=== PATIENT | male | born 1950 | race Caucasian/White ===

== ENCOUNTER 2016-08-17 07:49 | Emergency (ER) | payer MEDICARE, OTHER ==
[2016-08-17 07:57] VITALS: BP 126/75
--- NOTE | 2016-08-17 08:22 | ERNOTE ---
ENT HPI Date of Service: 08/17/16 Presenting Symptoms: other - facial swelling Time Seen by Provider: 08/17/16 08:21 - Immun/Allergies/Home Medications Immunizations: IMMUNIZATION HX Immunizations Up to Date Yes History of Influenza Vaccine No Hx Pneumococcal Vaccination No Allergies/Adverse Reactions: Allergies Allergy/AdvReac Type Severity Reaction Status Date / Time No Known Allergies Allergy Verified 08/17/16 08:00 Home Medications: HOME MEDICATIONS Aspirin [Aspirin Enteric Coated] 81 mg PO DAILY 03/14/16 [Last Taken Unknown] Atorvastatin Calcium 40 mg PO DAILY 03/14/16 [Last Taken Unknown] Levothyroxine Sodium [Synthroid] 25 mcg PO DAILY 03/14/16 [Last Taken Unknown] Metoprolol Succinate 50 mg PO DAILY 03/14/16 [Last Taken Unknown] Amox Tr/Potassium Clavulanate [Augmentin 875-125 Tablet] 1 tab PO Q12H #20 tab 08/17/16 [Last Taken Unknown] Penicillin V Potassium [Pen-Vee K] 500 mg PO TID 08/17/16 [Last Taken Unknown] - History of Present Illness Narrative: Presents with c/o left sided preauricular swelling for 2 days. Claims he has had similar episodes, twice in the past, with a diagnosis of parotitis. Claims he was given antibiotic by his PCP on previous episodes. Has been taking left over PCN. Denies any fever or chills. Severity: Present: moderate ENT Location: Present: facial Prearrival Treatment: Present: prescription meds - left over PCN tabs Modifying Factors - Improves: Reports: nothing Modifying Factors - Worsens: Reports: nothing Associated Symptoms - ENT: Reports: facial pain/swelling. Denies: fever, drooling, nasal congestion/drainage, tooth pain, jaw swelling, change in hearing , ear drainage, headache Review of Systems - Review of Systems Constitutional: Present: no symptoms reported EYE: Present: no symptoms reported ENT: Present: See HPI Respiratory: Present: no symptoms reported Cardiology: Present: no symptoms reported Gastrointestinal/Abdominal: Present: no symptoms reported Genitourinary: Present: no symptoms reported Musculoskeletal: Present: no symptoms reported Skin: Present: no symptoms reported Neurological: Present: no symptoms reported Endocrine: Present: no symptoms reported - Patient's Past Medical History Patient History - Medical: Hypothyroidism Patient History - Cardiac/Respiratory: Hypertension, Hyperlipidemia Patient History - Cancer: No Hx of Cancer Patient History - Surgical Procedures: Cardiac stent Patient History - Other: None - Social History Living Situations: home Abuse History: No History of abuse Psych History: No pertinent hx Alcohol Use: rarely Drug Use: none - Immunizations Immunizations Up to Date: Yes Hx Pneumococcal Vaccination: No History of Influenza Vaccine: No Physical Exam - Physical Exam General Appearance: Present: wd/wn, alert, no apparent distress Eye Exam: Normal inspection: bilateral, PERRL: bilateral, EOMI: bilateral Ears, Nose, Throat: Present: normal ENT inspection, other - Left parotid gland moderate, nontender, swelling. No warmth. No overlying erythema. Neck: Present: normal inspection, nontender, supple. Absent: lymphadenopathy (R ), lymphadenopathy (L) Respiratory: Present: no respiratory distress, normal breath sounds, chest nontender, lungs clear Cardiovascular/Chest: Present: regular rate, rhythm, no murmur Neurological Exam: Present: alert, oriented, normal mood/affect Skin Exam: Present: normal color, warm/dry ED Progress - Vital Signs Patient's Vital Signs:: I have reviewed the patient's vital signs. Vital Signs: Vital Signs 08/17/16 07:53 Temperature 36.9 C Pulse Rate 86 Respiratory 12 Rate Blood Pressure 126/75 O2 Sat by Pulse 96 Oximetry - Progress/Reassessment Chief Complaint: Facial Injury Departure Clinical Impression: Acute parotitis - Departure Disposition: Home self-care Condition: Good Instructions: Parotitis, [id number] Additional Instructions: Take medication as prescribed. Apply warm compress or heat to swelling 2 to 4 times daily. Recommend sucking on lollipops, popsicles, and even chewing gum to create more saliva. Follow up with your PCP in 1 week if condition does not show improvement. Referrals: Hever Galeana MD [Primary Care Provider] - Prescriptions: Amox Tr/Potassium Clavulanate [Augmentin 875-125 Tablet] 1 tab PO Q12H #20 tab
--- OUTSIDE RECORDS SUMMARY | 2016-08-17 08:33 | XMS REPORT | Continuity of Care Document ---
:1950 Author Organization [facility] ([facility]) [place] [address] Phone [phone] Care Team Providers Name Role Phone Hever Mcallister Primary Care Provider [phone] Source Comments This disclosure is being made pursuant to the Care Everywhere program, applicable federal and state laws, and may not contain all informaitonavailable regarding this patient.[facility] ([facility]) Active Allergies and Adverse Reactions No Known Allergies Current Medications Prescription Sig. Disp. Refills Start Date End Date Status LEVOTHYROXINE 25 mcg Take 25 mcg by 04/09/2015 Active tablet mouth daily. METOPROLOL succinate 50 Take 50 mg by 04/09/2015 Active mg XL tablet mouth daily. aspirin 81 mg EC tablet Take 81 mg by Active mouth. atorvastatin 40 mg Take 1 tablet 90 tablet 4 05/10/2016 Active tablet (40 mg total) by mouth daily. multivitamin tablet Take 1 tablet by Active mouth daily. Active Problems Problem Noted Date Precordial pain 07/07/2016 Coronary artery disease Overview: Formatting of this note may be different from the original. CARDIOVASCULAR PROCEDURES STRESS TESTS: Marco A MPI (Normal EF, Normal perfusion at rest and stress. Normal study.) - Hyperlipidemia Myocardial infarction, old Most Recent Encounters Date Type Specialty Providers Description 07/12/2016 Office Visit [facility] Samantha Nelson MD Chief Comp: Patient Reported Reason For Visit 07/12/2016 Office Visit [facility] Samantha Nelson MD Chief Comp: Patient Reported Reason For Visit 07/12/2016 Office Visit [facility] Samantha Nelson MD Chief Comp: Patient Reported Reason For Visit 07/07/2016 Office Visit [facility] Samantha Nelson MD Dx: Precordial pain (Primary Dx) Social History Tobacco Use Types Packs/Day Years Used Date Former Smoker Alcohol Use Drinks/Week oz/Week Comments No Last Filed Vital Signs Vital Sign Reading Time Taken Blood Pressure 108/80 07/07/2016 11:12 AM 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 [employer] Pulse 68 07/07/2016 11:12 AM [employer] Temperature - - Respiratory Rate - - Height 1.778 m (5' 10") 07/07/2016 11:12 AM [employer] Weight 97.977 kg (216 lb) 07/07/2016 11:12 AM [employer] Body Mass Index 30.99 07/07/2016 11:12 AM [employer] Oxygen Saturation - - Plan of Care Date Type Specialty Providers Description 05/02/2017 Appointment [facility] Samantha Nelson MD Chief Comp: Patient [address] [place] [address] Visit [phone] (Fax) Health Maintenance Due Date Last Done Comments HCV Screening 1950 Hepatitis B Vaccine (1 of 3 - Primary Series) 1950 Tdap Vaccine 10/28/1959 Lipid Disorder Screening 1966 Td Vaccine 1966 Colonoscopy 1998 Prostate Cancer Screening 1998 Zoster Vaccine 2008 Pneumococcal Vaccine (1 of 2 - PCV13) 2013 Influenza Vaccine: Seasonal (#1) 01/04/2016 Results from Last 3 Months Not on file
--- OUTSIDE RECORDS SUMMARY | 2016-08-17 08:33 | XMS REPORT | Summary of Care ---
:1950 Author Organization [facility] Care Team Providers Name Role Phone Hever Mcallister Primary Care Physician Encounter 07/02/16 - 07/02/[address] Carolee Manley , Dir. Lab: [phone] [place] [address]- Discharge Disposition: Home Attending Physician: Dayne Smith DO Admitting Physician: Hever Mcallister MD Referring Physician: Self, Referral Vital Signs Most recent to oldest 1 2 3 [Reference Range]: Orientation Oriented to Person, Place, Time (07/02/16 4:58 PM) Level of Consciousness Alert (07/02/16 4:58 PM) Respiratory Rate [12-30 21 brpm 17 brpm brpm] (07/02/16 8:05 PM) (07/02/16 5:07 PM) Blood Pressure [(reference 151/84mm hg 162/88mm hg 185/97mm hg range unavailable)/61-99 mm (07/02/16 8:05 PM) *>HHI* *>HHI* hg] (07/02/16 5:07 PM) (07/02/16 4:58 PM) Temperature F [97.7-99.9 97.6 degF 97.6 degF degF] *LOW* *LOW* (07/02/16 4:58 PM) (07/02/16 4:48 PM) Height 177.8 cm 177.8 cm (07/02/16 4:58 PM) (07/02/16 4:48 PM) Weight 94.5 kg 94.545 kg (07/02/16 4:58 PM) (07/02/16 4:48 PM) Problem List Condition Effective Dates Status Health Status Informant Myocardial infarction(Confirmed) Active Allergies, Adverse Reactions, Alerts No Known Allergies Medications atorvastatin 40 mg, PO, HS (At Bedtime) Start Date: 07/02/16 Status: Orderedlevothyroxine 25 mcg, PO, Daily (Once Daily) Start Date: 07/02/16 Status: Orderedmetoprolol succinate XL 50 mg, PO, Daily (Once Daily) Start Date: 07/02/16 Status: Ordered Results BASIC CHEMISTRIES Most recent to oldest [Reference Range]: 1 2 Sodium [134-144 mmol/L] 138 mmol/L (07/02/16 5:10 PM) Potassium [3.5-5.2 mmol/L] 4.3 mmol/L (07/02/16 5:10 PM) Chloride [97-108 mmol/L] 98 mmol/L (07/02/16 5:10 PM) CO2 [18-29 mmol/L] 25 mmol/L (07/02/16 5:10 PM) AGAP [5-19 mmol/L] 15 mmol/L (07/02/16 5:10 PM) Gluc [65-99 mg/dL] 112 mg/dL *HI* (07/02/16 5:10 PM) BUN [8-27 mg/dL] 12 mg/dL (07/02/16 5:10 PM) Creatinine [0.76-1.27 mg/dL] 0.67 mg/dL *LOW* (07/02/16 5:10 PM) eGFR 126 mL/min/1.73 m2 *NA* (07/02/16 5:10 PM) eGFR Amer 152 mL/min/1.73 m2 *NA* (07/02/16 5:10 PM) Bun/Crea [6-20 Ratio] 18 Ratio (07/02/16 5:10 PM) Calc Osmo [273-304] 276 (07/02/16 5:10 PM) Calcium [8.6-10.2 mg/dL] 9.3 mg/dL (07/02/16 5:10 PM) GENERAL CHEMISTRIES Most recent to oldest [Reference Range]: 1 2 ALT [0-44 International Units/L] 27 International Units/L (07/02/16 5:10 PM) AST [0-40 International Units/L] 22 International Units/L (07/02/16 5:10 PM) ALP [39-117 Units/L] 53 Units/L (07/02/16 5:10 PM) Bili Total [0.0-1.2 mg/dL] 0.4 mg/dL (07/02/16 5:10 PM) Total Protein [6.0-8.5 gm/dL] 7.2 gm/dL (07/02/16 5:10 PM) Albumin [3.6-4.8 gm/dL] 4.4 gm/dL (07/02/16 5:10 PM) Globulin [2.1-4.0 gm/dL] 2.8 gm/dL (07/02/16 5:10 PM) Alb/Glob 1.6 *NA* (07/02/16 5:10 PM) CARDIAC MARKERS Most recent to oldest [Reference Range]: 1 2 CK [24-204 Units/L] 114 Units/L (07/02/16 5:10 PM) Troponin T w/Courtesy Call [0.00-0.01 ng/mL] <0.01 ng/mL <0.01 ng/mL (07/02/16 7:10 PM) (07/02/16 5:10 PM) HEMOGRAM Most recent to oldest [Reference Range]: 1 2 WBC [4.80-10.80 thous/uL] 7.54 thous/uL (07/02/16 5:10 PM) RBC [4.70-6.10 mill/uL] 4.96 mill/uL (07/02/16 5:10 PM) Hgb [14.0-18.0 gm/dL] 16.0 gm/dL (07/02/16 5:10 PM) Hct [42.0-52.0 %] 46.0 % (07/02/16 5:10 PM) MCV [83.0-97.0 fl] 92.7 fl (07/02/16 5:10 PM) MCH [27.0-31.0 pg] 32.3 pg *HI* (07/02/16 5:10 PM) MCHC [32.3-36.5 gm/dL] 34.8 gm/dL (07/02/16 5:10 PM) Platelet [130-450 thous/uL] 136 thous/uL (07/02/16 5:10 PM) MPV [9.4-12.4 fl] 10.3 fl (07/02/16 5:10 PM) RDW-CV [11.5-15.5 %] 12.9 % (07/02/16 5:10 PM) AUTOMATED DIFF Most recent to oldest [Reference Range]: 1 2 Neut % 60.9 % *NA* (07/02/16 5:10 PM) Lymph % 28.6 % *NA* (07/02/16 5:10 PM) Mcduffie % 8.1 % *NA* (07/02/16 5:10 PM) Eos % 1.6 % *NA* (07/02/16 5:10 PM) Baso % 0.7 % *NA* (07/02/16 5:10 PM) Neut # [1.50-7.50 thous/uL] 4.59 thous/uL (07/02/16 5:10 PM) Lymph # [1.10-3.00 thous/uL] 2.16 thous/uL (07/02/16 5:10 PM) Mcduffie # [0.10-0.75 thous/uL] 0.61 thous/uL (07/02/16 5:10 PM) Eos # [0.00-0.50 thous/uL] 0.12 thous/uL (07/02/16 5:10 PM) Baso # [0.00-0.10 thous/uL] 0.05 thous/uL (07/02/16 5:10 PM) MANUAL DIFF Most recent to oldest [Reference Range]: 1 2 IG Pc 0.1 % *NA* (07/02/16 5:10 PM) IG Abs [0.00-0.10 thous/uL] 0.01 thous/uL (07/02/16 5:10 PM) Immunizations No data available for this section Procedures Procedure Date Related Diagnosis Body Site Stent, device Social History Social History Type Response Alcohol Current, 1-2 times per week Substance Abuse Never Smoking Status Never smoker Assessment and Plan Extracted from: Title:Chest Pain *ED Author:Dayne Smith DO Date:07/02/16 Impression and Plan Diagnosis Left sided chest pain ([facility] [id number], Working, Medical) Plan Condition: Stable. Disposition: Discharged: Time 07/02/2016 20:05:00, to home. Patient was given the following educational materials: Chest Pain (Nonspecific ) (Custom). Follow up with: Return to Emergency Department (if symptoms worsen), Primary Care Physician, In: 2 day(s). Counseled: Patient, Family, Regarding diagnosis, Regarding diagnostic results, Regarding treatment plan, Patient indicated understanding of instructions. Notes: By signing my name below, I Elayne Santos, attest that this documentation has been prepared under the direction and in the presence of Brayan Smith DO. I, Dr. Smith, personally performed the services described in this documentation. All medical record entries made by the scribe were at my direction and in my presence. I have reviewed the chart and agree that the record reflects my personal performance and is accurate and complete..
--- OUTSIDE RECORDS SUMMARY | 2016-08-17 08:33 | XMS REPORT | Continuity of Care Document ---
:1950 Author Organization [facility] [place] [address] Care Team Providers Name Role Phone Provider, None Per Patient Primary Care Provider Unavailable Source Comments This disclosure is being made pursuant to the [employer] program and maynot contain all information available regarding this patient.[employer] [facility] [facility] Active Allergies and Adverse Reactions No Known Allergies Current Medications Be aware that medications may not be up to date as of this document. Alwaysverify current medications with the patient. Prescription Sig. Disp. Refills Start Date End Date Status levothyroxine Take 100 mcg by Active (SYNTHROID, LEVOTHROID) mouth daily. 100 MCG tablet metoprolol succinate Take 50 mg by Active (TOPROL-XL) 50 MG 24 hr mouth daily. tablet simvastatin (ZOCOR) 10 Take 10 mg by Active MG tablet mouth nightly. aspirin 81 MG EC tablet Take 81 mg by Active mouth daily. fluocinonide (LIDEX) Apply twice 30 g 0 03/09/2016 Active 0.05 % cream daily to area of rash for 2-3 weeks or until resolved. Do not apply to face. hydrOXYzine (ATARAX) 25 Take 1 tablet by 30 tablet 0 03/09/2016 Active MG tablet mouth 3 (three) times daily as needed for Itching. Active Problems No known active problems Social History Tobacco Use Types Packs/Day Years Used Date Former Smoker Last Filed Vital Signs Vital Sign Reading Time Taken Blood Pressure 118/72 03/09/2016 8:02 PM CDT Pulse 80 03/09/2016 8:02 PM CDT Temperature 36.4 C (97.5 F) 03/09/2016 8:02 PM CDT Respiratory Rate 12 03/09/2016 8:02 PM CDT Height 1.778 m (5' 10") 03/09/2016 8:02 PM CDT Weight 96.072 kg (211 lb 12.8 oz) 03/09/2016 8:02 PM CDT Body Mass Index 30.39 03/09/2016 8:02 PM CDT Oxygen Saturation - - Plan of Care Health Maintenance Due Date Last Done Comments Hepatitis C Screening 1968 Tetanus/Pertussis (1 - Tdap) 10/28/1967 Colonoscopy 1998 Well Adult Visit 1998 Zoster Vaccine 60+ 2008 AAA Screening (Medicare Covered) 2013 Pneumococcal Low/Medium Risk 65+ (1 of 2 - PCV13) 2013 Influenza Immunization (#1) 2016 Results from Last 3 Months Not on file
== END 2016-08-17 08:50 | disposition home or self-care (01) ==
LOC: ER 07:49
DX: K11.21 Acute sialoadenitis (principal); E03.9 Hypothyroidism, unspecified; I10 Essential (primary) hypertension; E78.5 Hyperlipidemia, unspecified; Z95.5 Presence of coronary angioplasty implant and graft

== ENCOUNTER 2016-11-18 10:35 | Day surgery (SDC) | payer MEDICARE, OTHER ==
[~2016-11-18 10:35] MED LIST: RINGERS SOLUTION,LACTATED 1,000 ML IV PRN; ceFAZolin SODIUM 2 GM in DEXTROSE 5 % IN WATER 50 ML IV PRN
--- OUTSIDE RECORDS SUMMARY | 2016-11-18 10:39 | XMS REPORT | Continuity of Care Document ---
:1950 Author Organization [facility] ([facility]) [place] [address] Phone [phone] Care Team Providers Name Role Phone Hever Mcallister Primary Care Provider [phone] Source Comments This disclosure is being made pursuant to the Care Everywhere program, applicable federal and state laws, and may not contain all informaitonavailable regarding this patient.[facility] ([facility]) Active Allergies and Adverse Reactions No Known Allergies Current Medications Prescription Sig. Disp. Refills Start Date End Date Status LEVOTHYROXINE 25 mcg Take 25 mcg by 11 04/09/2015 Active tablet mouth daily. METOPROLOL succinate 50 Take 50 mg by 11 04/09/2015 Active mg XL tablet mouth daily. 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
--- OUTSIDE RECORDS SUMMARY | 2016-11-18 10:39 | XMS REPORT | Continuity of Care Document ---
:1950 Author Organization [employer] [facility] [employer] [place] [address] Care Team Providers Name Role Phone Provider, None Per Patient Primary Care Provider Unavailable Source Comments This disclosure is being made pursuant to the [employer] program and maynot contain all information available regarding this patient.[employer] Active Allergies and Adverse Reactions No Known [...]
[2016-11-18] MEDS ORDERED: RINGERS SOLUTION,LACTATED 1,000 ML IV ONE (11:09)
[2016-11-18] MEDS ORDERED: BUPIVACAINE HCL/EPINEPHRINE 50 ML VIAL IJ ONE ×2 (12:33)
[2016-11-18] MEDS ORDERED: LIDOCAINE HCL 50 ML VIAL IJ ONE ×2 (12:34)
--- NOTE | 2016-11-18 13:38 | OR ---
Operative Report - Dictated Report Narrative: Date: 11/18/2016 Preoperative diagnosis: Left inguinal hernia Postoperative diagnosis: Same, direct Procedure: Left inguinal hernia repair with large Prolene hernia system Staff surgeon: Ahsan Hess MD Anesthesia: Local/MAC EBL: Minimal Specimen: Transversalis fascia-discarded. Description of procedure: The patient was placed in the supine position and the left groin and genitalia were prepped and draped in the sterile fashion. A field block was performed. Incision was carried out at the pubic tubercle and extended laterally for 6 cm. Dissection was taken down through the subcutaneous tissue to the external oblique up on urinalysis. Additional anesthesia was injected into the inguinal canal. The external oblique was divided in the direction of its fibers through the external ring. The spermatic cord was dissected free from surrounding structures and isolated the pubic tubercle with a Boulder drain. There was no evidence of an indirect hernia. He had a large direct hernia this was dissected free from the surrounding adventitia. The transversalis was then excised off of the hernia as well. A properitoneal pocket was then formed with sponge packing and finger dissection. A large Prolene hernia system was selected for the prosthesis. The internal disc was deployed into the properitoneal pocket. The medial external leaflet was fashioned to overlap the pubic tubercle by 2 cm and was placed in an onlay fashion. The lateral leaflet was keyholed for egress of the spermatic cord. The 2 tails were sutured to one another with a 3-0 Prolene. The external oblique was reconstituted with a running whipstitch of 3-0 Vicryl. The incision was closed with a subcuticular stitch of 4-0 Vicryl and then sealed with Dermabond. The patient tolerated the procedure well without any apparent complications and was discharged from the operating room in stable condition.
[2016-11-18] MEDS ORDERED: HYDROcodone/ACETAMINOPHEN 1 EACH TABLET PO PRN (14:22)
[2016-11-18 15:07] VITALS: BP 126/72
== END 2016-11-18 10:36 | disposition home or self-care (01) ==
LOC: AMB 10:35
PROVIDERS: ATTEND Specialist
PROC: 0YU60JZ Supplement Left Inguinal Region with Synthetic Substitute, Open Approach (ICD-10-PCS; principal; 2016-11-18 11:30)
DX: K40.90 Unilateral inguinal hernia, without obstruction or gangrene, not specified as recurrent (principal); I10 Essential (primary) hypertension; E78.5 Hyperlipidemia, unspecified; E03.9 Hypothyroidism, unspecified; J45.20 Mild intermittent asthma, uncomplicated; Z87.891 Personal history of nicotine dependence; Z68.30 Body mass index [BMI] 30.0-30.9, adult

== ENCOUNTER 2016-11-27 08:22 | Emergency (ER) | payer MEDICARE, OTHER ==
[2016-11-27 08:32] VITALS: BP 148/83
--- OUTSIDE RECORDS SUMMARY | 2016-11-27 08:41 | XMS REPORT | Continuity of Care Document ---
:1950 Author Organization [employer] [place] [address] Care Team Providers Name Role Phone Provider, None Per Patient Primary Care Provider Unavailable Source Comments This disclosure is being made pursuant to the [employer] program and maynot contain all information available regarding this patient.[facility] Active Allergies and Adverse Reactions No Known [...]
--- NOTE | 2016-11-27 08:57 | ERNOTE ---
Abdominal HPI - General Chief Complaint: Abdominal Pain Time Seen by Provider: 11/27/16 08:33 Source: patient Exam Limitations: no limitations - Immun/Allergies/Home Medications Immunizatons: IMMUNIZATION HX Immunizations Up to Date Yes History of Influenza Vaccine Yes Hx Pneumococcal Vaccination No Allergies/Adverse Reactions: Allergies No Known Allergies Allergy (Verified 11/27/16 08:31) Home Medications: HOME MEDICATIONS Aspirin [Aspirin Enteric Coated] 81 mg PO DAILY 03/14/16 [Last Taken Unknown] Atorvastatin Calcium 40 mg PO DAILY 03/14/16 [Last Taken Unknown] Levothyroxine Sodium [Synthroid] 25 mcg PO DAILY 03/14/16 [Last Taken Unknown] Metoprolol Succinate [Toprol Xl] 50 mg PO DAILY 11/16/16 [Last Taken Unknown] Multivitamins [Multivitamin Richy] 1 cap PO DAILY 11/16/16 [Last Taken Unknown] [place]-3 Fatty Acids/Fish Oil [Fish Oil 1,000 mg Capsule] 1 each PO DAILY [Last Taken Unknown] - History of Present Illness Narrative: Patient had left inguinal hernia repair nine days ago. He has been doing well post op, not needing any pain medications. Yesterday he went to a [employer] and spend nine hours total in a car. In the evening the area seemed sore. This morning he started to do his abdominal exercises and had discomfort again, no pain when laying down, slightly tender to touch and discomfort when sitting prolonged. He also noted a little swelling when palpating the scar. Modifying Factors - (Improves): Present: lying down Modifying Factors - (Worsens): Present: sitting up Associated Symptoms: Present: denies symptoms Prior Treatment: Present: recently seen. Absent: currently on antibiotics Review of Systems - Review of Systems Constitutional: Present: recent illness. Absent: fever ENT: Absent: nose congestion, sore throat Respiratory: Absent: shortness of breath Cardiology: Absent: chest pain Gastrointestinal/Abdominal: Present: See HPI, constipation. Absent: nausea, vomiting, diarrhea Genitourinary: Present: no symptoms reported Skin: Present: no symptoms reported Neurological: Absent: headache - Patient's Past Medical History Patient History - Medical: Hypothyroidism, Other Patient History - Cardiac/Respiratory: Hypertension, Hyperlipidemia, Myocardial Infarction Patient History - Cancer: No Hx of Cancer Patient History - Surgical Procedures: Colonoscopy, T & A, Hernia Repair Patient History - Other: None - Family History Father Family History - Medical: , No pertinent hx Family History - Cardiac/Respiratory: Coronary Heart Disease Family History - Cancer: No pertinent family hx Mother Family History - Medical: , No pertinent hx Family History - Cardiac/Respiratory: Myocardial Infarction Family History - Cancer: Cervical - Social History Living Situations: alone Abuse History: No History of abuse Psych History: No pertinent hx Smoking Status: Never smoker Have you smoked in the past 12 months: No Do you dip or chew tobacco: No Alcohol Use: none Drug Use: none - Immunizations Immunizations Up to Date: Yes Hx Pneumococcal Vaccination: No History of Influenza Vaccine: Yes Physical Exam - Physical Exam General Appearance: Present: wd/wn, alert, no apparent distress Respiratory: Present: no respiratory distress, normal breath sounds, lungs clear Cardiovascular/Chest: Present: regular rate, rhythm, no murmur Gastrointestinal/Abdominal: Present: normal bowel sounds, nondistended, soft, other - left lower quadrant well healing scar, no erythema, no drainage, no swelling, small palpable hematoma, skin echymosis suprapubic but no induration, minimally tender Male Genitals Exam: Present: normal genitalia - except skin echymosis Neurological Exam: Present: alert, oriented, normal mood/affect Skin Exam: Present: normal color, warm/dry ED Progress - Vital Signs Patient's Vital Signs:: I have reviewed the patient's vital signs. Vital Signs: Vital Signs 11/27/16 08:26 Temperature 35.9 C L Pulse Rate 72 Respiratory 14 Rate Blood Pressure 148/83 O2 Sat by Pulse 99 Oximetry - Progress/Reassessment Chief Complaint: Abdominal Pain Departure - Departure Clinical Impression: Encounter for postoperative wound check Disposition: Home self-care Condition: Good Instructions: Inguinal Hernia, Adult, [id number] Additional Instructions: the wound looks good, follow up with your surgeon as scheduled Referrals: Hever Galeana MD [Primary Care Provider] -
== END 2016-11-27 08:52 | disposition home or self-care (01) ==
LOC: ER 08:22
DX: Z98.890 Other specified postprocedural states (principal); E03.9 Hypothyroidism, unspecified; E78.5 Hyperlipidemia, unspecified; I10 Essential (primary) hypertension; I25.2 Old myocardial infarction

== ENCOUNTER 2016-12-09 09:25 | Day surgery (SDC) | payer MEDICARE, OTHER ==
[~2016-12-09 09:25] MED LIST changes: -ceFAZolin SODIUM 2 GM in DEXTROSE 5 % IN WATER 50 ML IV PRN
--- OUTSIDE RECORDS SUMMARY | 2016-12-09 09:28 | XMS REPORT | Continuity of Care Document ---
:1950 Author Organization [place] [address] Care Team Providers Name Role Phone Provider, None Per Patient Primary Care Provider Unavailable Source Comments This disclosure is being made pursuant to the [employer] program and maynot contain all information available regarding this patient.[facility] Active Allergies and Adverse Reactions No Known [...] from Last 3 Months Not on file Insurance Payer Benefit Plan / Group Subscriber ID Type Phone Address MEDICARE MEDICARE A AND B [id number] [phone] [address] [place] [address] [employer] MEDICARE ZZ AETNA MEDICARE [id number] [address] [address] [place] [address]
[2016-12-09] MEDS ORDERED: RINGERS SOLUTION,LACTATED 1,000 ML IV ONE (11:55)
--- NOTE | 2016-12-09 12:03 | OR ---
Operative Report - Dictated Report Narrative: Date: 12/09/2016 Preop diagnosis: Screening colonoscopy Postop diagnosis: Sigmoid diverticulosis, internal hemorrhoid x 1 Procedure: Total colonoscopy Staff Surgeon: Ahsan Hess MD Anesthesia: MAC per [employer] EBL: None Specimen: none Description: After informed consent and appropriate sedation the patient was placed in the left lateral decubitus position. A flexible fiberoptic video colonoscope was introduced and advanced under direct vision without difficulty to the cecum. The usual landmarks were identified. Preparation was excellent and excellent views were obtained. The findings were of a normal cecum, ascending colon, hepatic flexure, transverse colon, splenic flexure, descending colon, sigmoid colon except for scattered large diverticuli, and rectum. Retroflex view showed one internal hemorrhoid. The mucosal color, vasculature, and texture were normal throughout. No suspicious masses were seen. The patient tolerated the procedure well without apparent complications and was discharged from the endoscopy suite in stable condition.
[2016-12-09 13:08] VITALS: BP 130/75
== END 2016-12-09 09:26 | disposition home or self-care (01) ==
LOC: AMB 09:25
PROVIDERS: ATTEND Specialist
PROC: 0DJD8ZZ Inspection of Lower Intestinal Tract, Via Natural or Artificial Opening Endoscopic (ICD-10-PCS; principal; 2016-12-09 10:30)
DX: Z12.11 Encounter for screening for malignant neoplasm of colon (principal); K57.30 Diverticulosis of large intestine without perforation or abscess without bleeding; K64.8 Other hemorrhoids; I10 Essential (primary) hypertension; E78.5 Hyperlipidemia, unspecified; E03.9 Hypothyroidism, unspecified; J45.20 Mild intermittent asthma, uncomplicated; Z87.891 Personal history of nicotine dependence; Z68.30 Body mass index [BMI] 30.0-30.9, adult

== ENCOUNTER 2018-04-23 11:01 | Inpatient (IN) | payer MEDICARE, OTHER ==
--- NOTE | 2018-04-18 14:20 | ANES ---
Anesthesia Pre Procedure Eval HOME MEDICATIONS Aspirin [Aspirin Enteric Coated] 81 mg PO DAILY 03/14/16 [Last Taken 12/08/16] Atorvastatin Calcium 40 mg PO DAILY 03/14/16 [Last Taken 12/08/16] Multivitamins [Multivitamin Richy] 1 cap PO DAILY 11/16/16 [Last Taken 12/08/16] [place]-3 Fatty Acids/Fish Oil [Fish Oil 1,000 mg Capsule] 1 ea PO DAILY 11/16/16 [Last Taken 12/08/16] levothyroxine 25 mcg tablet 25 mcg PO DAILY #30 tab 12/05/17 [Last Taken Unknown] metoprolol succinate ER 50 mg tablet,extended release 24 hr 50 mg PO DAILY #30 tab 12/05/17 [Last Taken Unknown] bifidobacterium bifidum and longum 460 mg (9-1 billion cell) capsule 1 cap PO DAILY cap 01/18/18 [Last Taken Unknown] methylcellulose (laxative) 500 mg tablet 500 mg PO BID tab 04/13/18 [Last Taken Unknown] polyethylene glycol 3350 17 gram/dose oral powder 17 g PO DAILY g 04/13/18 [Last Taken Unknown] Allergies/Adverse Reactions: Allergies Allergy/AdvReac Type Severity Reaction Status Date / Time No Known Allergies Allergy Verified 04/18/18 12:47 - Planned Procedure Planned Procedure: Arthroplasty Total Knee RT Medication List Reviewed:: Yes Allergies Verified: Yes Medical History (Last Reviewed 04/18/18 @ 12:47 by Carmina Damon) Asthma Onset Date: ~05/26/14 as child and now intermittent Diverticulitis of colon Onset Date: Unknown Hernia, inguinal Onset Date: ~04/14/09 dr. Anaya/ left inguinal hernia Hip pain Onset Date: Unknown left Hyperlipidemia Onset Date: Unknown Hypertension Onset Date: Unknown Hypothyroid Onset Date: ~11/2010 Myocardial infarction Onset Date: ~11/06/98 Sialolith Onset Date: ~04/23/16 Tendonitis Onset Date: ~03/13/03 right sided, Achilles tendonitis Viral disease Onset Date: ~06/15/13 History of pneumonia Onset Date: ~1974 Surgical History (Last Reviewed 04/18/18 @ 12:47 by Carmina Damon) H/O colonoscopy Onset Date: ~01/24/07 H/O heart artery stent Onset Date: ~1998 [facility] H/O inguinal hernia repair Onset Date: ~11/18/16 H/O local excision of skin lesion Onset Date: ~11/27/09 H/O prostate biopsy Onset Date: ~12/29/03 dr. barakat w/excision Hx of tonsillectomy Onset Date: ~1953 Family History (Last Reviewed 04/18/18 @ 12:47 by Carmina Damon) Brother Alive and well x 1 Daughter Alive and well x 1 Father , age 58 of [place] Myocardial infarction Heart disease Mother , age 73 Myocardial infarction Obesity Uterine cancer Polio - Airway/Neck/Teeth Within Normal Limits:: Yes Teeth Condition: Intact Mallampatti Score: 1 Thyromental (T-M) distance: > 6 cm Mandibulo Hyoid distance: > 3 cm - Respiratory Smoking Status: Former smoker Discussed smoking cessation including day of surgery: No Sleep Apnea currently treated: No Sleep Apnea by current assessment: No Discussed Risks/Treatment of GUSTAVO: No - Cardiovascular Tolerates Activity: Fair Heart Sounds: S1 & S2, Regular - Anesthesia Assessment and Plan ASA Class: PS, III Anesthesia Type Plan: Block - Right ultrasound guided peripheral nerve block for postop analgesia, Spinal
[~2018-04-23 11:01] MED LIST changes: +MORPHINE SULFATE 15 MG TABLET.SA PO PRN; -RINGERS SOLUTION,LACTATED 1,000 ML IV PRN; +ROPIVACAINE HCL/PF 100 MG, EPINEPHrine 0.2 MG, KETOROLAC TROMETHAMINE 30 MG in NORMAL S... IJ PRN; +TRANEXAMIC ACID 1,000 MG in NORMAL SALINE 100 ML IV PRN; +ceFAZolin SODIUM 1 GM VIAL IV PRN
[2018-04-23] MEDS: RINGER'S SOLUTION,LACTATED 1,000 ML IV PRN ×3 (11:54→15:43)
--- NOTE | 2018-04-23 15:02 | OR ---
Operative Report - Dictated Report Narrative: Date: 04/23/2018 Preoperative diagnosis: Right Knee degenerative joint disease. Postoperative diagnosis: Right Knee degenerative joint disease. Procedure: Right Total knee arthroplasty. Surgeon: Tony Solano M.D. Checkout Supervisor: Abraham Paige PA-C (provided an essential facet of skilled and educated hands and assisted with transfer, positioning, draping, retraction, placement of instruments, irrigation, suturing, and dressings all of which cannot be performed by the available surgical crew) Anesthesia: Spinal with regional block and local periarticular joint injection. Complications: None Specimens: Bone for disposal. Estimated blood loss: Minimal. Tourniquet time: 120 Minutes at 325 millimeters of mercury. Retained implants: Depuy Attune size 8 right lugged cemented posterior stabilized femoral component. Size 8 fixed-bearing cemented tibial platform. 8 by 5 millimeter posterior stabilized cross-linked tibial insert. 41 millimeter medialized patella button. Indications: Mr. Garcia is a 67-year-old gentleman who has had long-standing right knee valgus arthrosis and pain. This patient was followed in my clinic for period of time with significant complaints of right knee pain consistent with arthritic changes. He had failed conservative measures including, but not limited to, activity modification, passage of time, medications, and other conservative measures. Patient wished to proceed with surgical treatment. The risks, benefits, and alternatives were discussed in clinic. The risks of , blood clots, bleeding, infection, nerve/tendon blood vessel/ injury, malposition of components, intraoperative fracture, postoperative limited range of motion, persistent pain, failure of components, and need for additional procedures. Patient wished to proceed consent was obtained after answering all questions. Procedure: After marking the correct extremity on the floor, the patient was taken to the operating room. A timeout was performed. IV antibiotics consisting of Ancef were administered prior to the procedure. A regional foll owed by spinal anesthetic was induced by anesthesia, per my request, on the operative table with all bony prominences well-padded. Castillo catheter was placed, and a bump was placed under the operative side buttock. SCDs and DRAKE hose were utilized on the nonoperative leg. A well-padded tourniquet was applied to the operative thigh. The operative leg was then pre-scrubbed with alcohol prepped, and draped in a standard sterile fashion. After exsanguinating the extremity with an Esmarch bandage, the tourniquet was inflated. After marking out the anterior knee for standard incision centered over the patella, the skin was incised and dissected down to the joint retinaculum. The joint retinaculum was marked out as well as the horizontal axis of the patella, and a standard medial parapatellar arthrotomy was then made. The most proximal aspect of the quadriceps tendon and the patella tendon insertion were protected from release. A partial synovectomy was performed as well as a resection of the infrapatellar fat pad. The distal femoral fat pad proximal to the trochlea was also resected using cautery. The soft tissues were elevated off the medial aspect of the proximal tibia using a Robles elevator ensuring that we did not transect the medial collateral ligament. Upon initial evaluation range of motion was approximately 10 degrees to130 degrees of flexion. There were signs of advanced arthrosis in the lateral patellofemoral greater than medial joint spaces. There were large marginal osteophytes which were removed with a rongeur. The knee was hyperflexed and the patella was tucked laterally. Protecting the surrounding soft tissues with Homans, an entry drill was placed down the femoral canal using Whitesides line for guidance into the entry point. The intramedullary femoral alignment ivette was utilized in order to cut the distal femur in 5 degrees of valgus resecting 12 millimeters of bone. Next the distal femur was sized to a size 8. A posterior referencing guide was utilized to place the distal femoral cutting block in 3 degrees of external rotation. This was pinned into place. The rotation was confirmed both visually and based on anatomic landmarks. The 4 in 1 cutting jig of the appropriate size was utilized in order to make all bony cuts. The angle wing was used to ensure no notching. Retractors were utilized in order to protect surrounding soft tissues. This cut did not result in any excessive notching. We then cut the box centered over the distal femur. This allowed for resection of the anterior and posterior cruciate ligaments. I then turned my attention to the preparation of the tibia. Using an extra medullary tibial alignment ivette, 2 millimeters of bone was resected off the lateral articular surface. This was made perpendicular to the mechanical axis of the joint with the alignment ivette centered over the ankle mortise. The alignment ivette was checked and was noted to be parallel to the mechanical axis, centered over the medial one third of the tibial tubercle, paralleling the anterior surface of the tibia. We then turned our attention to the remaining meniscus and soft tissues. These were removed while protecting the surrounding ligaments and soft tissues. The marginal osteophytes off the anterior, posterior, medial, lateral aspects of the femur and tibia were removed. The tibia was sized out to a size 8. Next the tibia was drilled and punched in an externally rotated position. Next the trial femur and a series of tibial inserts were utilized in order to allow for full extension and maximal flexion. It was found that a 5 millimeter insert gave the best range of motion and stability at multiple flexion points as well as at full extension there was less than 2 mm of gapping both medially and laterally. There is minimal anterior translation with the knee at 90 degrees of flexion and no signs of being able to dislocate the knee. The patella was then prepared. The initial thickness was 23 millimeters. This was reamed down to 13 millimeters parallel to the anterior surface of the patella. It was sized out to a size 41 medialized patella button. This was then drilled and trialed. Without any medial restraint the patella tracked appropriately and did not sublux or dislocate. At this point, it was felt these were the appropriate sized implants, and all trials were removed. The standard periarticular joint injection consisting of ropivacaine, Toradol, and epinephrine were injected into the periarticular joint tissues. The bony surfaces were thoroughly irrigated with a pulsatile-suction saline irrigation device. A bone plug from the prior resected anterior chamfer cut was placed into the drill hole at the distal femur. The bony surfaces were then dried in preparation for placement of the implants. The cement was vacuum mixed per the animal care provider's instructions. The cement was placed on the dry bony surfaces and posterior aspect of the implants. The implants were impacted into place, removing all extruded cement. At this point anesthesia administered tranexamic acid per protocol intravenously. The knee was placed in extension with axial loading with the trial insert while the cement cured. Once the cement cured, all remaining extruded cement was removed. The knee was placed through a range of motion with the trial insert to ensure appropriate range of motion and stability. Final range of motion was approximately 0 to 130 degrees. The knee was again thoroughly irrigated with pulsatile saline lavage. The final polyethylene insert was then impacted into place ensuring no retained soft tissues. The remaining periarticular joint injection was injected. A medium Hemovac drain was placed exiting superior laterally. The knee was then placed over a triangle and the arthrotomy was closed with interrupted #1 Vicryl after thoroughly irrigating the joint. The deep and subcutaneous tissues were closed with interrupted 0 and 3-0 Vicryl respectively. Skin was closed with a running subcutaneous 3-0 Monocryl and Prineo Dermabond dressing. 4 x 4's, Sof-Rol, and a full leg Austin wrap were applied. All sponge, needle, blade, and instrument counts were correct prior to closing the wounds. Postoperative condition: The patient was awoken and transferred to the postanesthesia care unit in stable condition. Plan is to be admitted to the inpatient medical/surgical floor postoperatively for 24 hours of IV antibiotics, physical therapy, occupational therapy, and medical comanagement. Patient will be weightbearing as tolerated with range of motion as tolerated. DVT prophylaxis will be with SCDs, DRAKE hose, and pharmacological anticoagulation. Anticipated hospital stay is approximately 1-3 days.
[2018-04-23] MEDS ORDERED: ACETAMINOPHEN 500 MG TABLET PO PRN (15:03)
[2018-04-23] MEDS ORDERED: MAG HYDROX/ALUMINUM HYD/SIMETH 30 ML UDC PO PRN (15:03)
[2018-04-23] MEDS ORDERED: diphenhydrAMINE HCL 50 MG/ML VIAL IV PRN (15:03)
[2018-04-23] MEDS ORDERED: RINGER'S SOLUTION,LACTATED 1,000 ML IV PRN (15:03)
[2018-04-23] MEDS ORDERED: MAGNESIUM HYDROXIDE 30 ML UDC PO PRN (15:03)
[2018-04-23] MEDS ORDERED: MORPHINE SULFATE 2 MG/ML DISP.SYRIN IV PRN (15:03)
[2018-04-23] MEDS ORDERED: ZOLPIDEM TARTRATE 5 MG TABLET PO PRN (15:03)
[2018-04-23] MEDS ORDERED: ONDANSETRON HCL/PF 2 MG/ML VIAL IV PRN (15:03)
--- NOTE | 2018-04-23 15:28 | ANES ---
Post Anesthesia Discharge - Transfer of Care Transfer of Care handoff given to nurse: Yes - Discharge from PACU Discharge from PACU when meets criteria: Yes
--- NOTE | 2018-04-23 15:33 | ANES ---
Anesthesia Procedure Note Procedure Note: ANESTHESIA PROCEDURE NOTE Date of procedure: 12/21/2017. Time of procedure:[]. 1240 Performed by: Alejandro Suazo CRNA Darkroom Worker: [] Jenni Iqbal RN . Preprocedure diagnosis: []. Right knee DJD. Desire for postoperative analgesia. Post procedure diagnosis: Same. Procedure:[] Ultrasound-guided right adductor canal block. Indications: []. Postoperative analgesia Findings: [] Patient brought to operating room #4 and placed in supine position. Patient was sedated. Patient's right inner thigh was prepped with ChloraPrep. Ultrasound was utilized to identify adductor canal. 1 mL of 1% Xylocaine was injected into the skin and subcutaneous tissue at the target site. 20-gauge 4 inch regional block needle was advanced under ultrasound guidance until tip of needle was placed in adductor canal. 20 mL of 0.25% Marcaine with epinephrine 1 200,000 was injected with adequate spread of local anesthesia noted. EBL: Minimal. Fluids: N/A. Specimen: N/A. Post procedure condition: The patient tolerated the procedure well. No complications were noted. Thank you for this consultation Alejandro Suazo CRNA
--- NOTE | 2018-04-23 15:52 | ANES ---
Post Anesthesia Assessment - Vital Signs Vitals: Last Vital Signs Temp 36.1 C 04/23/18 15:15 Pulse 82 04/23/18 15:50 Resp 12 04/23/18 15:50 BP 99/63 04/23/18 15:50 Pulse Ox 98 04/23/18 15:50 Airway Patency: Normal - Mental Status Level Of Consciousness: Awake - Pain Level Pain Score: 0 - N/V Assessment Nausea/Vomiting Presence: None Dehydration:: No
[2018-04-23] MEDS: KETOROLAC TROMETHAMINE 15 MG/ML VIAL IV SCH ×2 (16:29→21:22)
[2018-04-23] MEDS: POLYETHYLENE GLYCOL 3350 119 GM BTL PO SCH (17:28)
[2018-04-23] MEDS: ceFAZolin SODIUM 1 GM in DEXTROSE 5 % IN WATER 100 ML IV SCH ×4 (17:29→23:52)
[2018-04-23] MEDS: oxyCODONE HCL/ACETAMINOPHEN 1 TAB TABLET PO PRN (18:09)
[2018-04-23] MEDS ORDERED: ROSUVASTATIN CALCIUM 20 MG TABLET PO SCH (21:00)
[2018-04-23] MEDS ORDERED: SENNOSIDES/DOCUSATE SODIUM 1 TAB TABLET PO SCH (21:00)
[2018-04-23] MEDS: MORPHINE SULFATE 15 MG TABLET.SA PO SCH (21:21)
[2018-04-23] MEDS: PSYLLIUM SEED 1 PACKET PACKET PO SCH (21:22)
[2018-04-24] MEDS: KETOROLAC TROMETHAMINE 15 MG/ML VIAL IV SCH ×2 (05:04→10:22)
[2018-04-24] MEDS: ceFAZolin SODIUM 1 GM in DEXTROSE 5 % IN WATER 100 ML IV SCH ×2 (05:05)
[2018-04-24 05:40] LABS: Hematocrit 36.2 % (42.0-52.0); Hemoglobin 12.5 gm/dL (13.5-18.0); Mean Cell Volume 94.3 fl (78-100); Mean Corpuscular Hemoglobin 32.6 pg (27-31); Mean Corpuscular Hgb Conc 34.5 g/dl (32-36); Mean Platelet Volume 10.2 fl (8-11.3); Platelet Count 113 K/mm3 (150-450); Red Blood Count 3.84 M/mm3 (4.7-6.0); Red Cell Distribution Width 13.5 % (11.5-14.0)
[2018-04-24 05:41] LABS: Anion Gap 6.7 mmol/L (6.8-13.8); BUN/Creatinine Ratio 10.8 (9.0-21.6); Calcium * 8.1 mg/dL (7.9-10.9); Carbon Dioxide 29.9 mmol/L (24-32.6); Estimated Creat Clear 93.9; Potassium 4.6 mmol/L (3.4-4.6)
[2018-04-24] MEDS ORDERED: LEVOTHYROXINE SODIUM 25 MCG TABLET PO SCH (07:00)
[2018-04-24] MEDS: oxyCODONE HCL/ACETAMINOPHEN 1 TAB TABLET PO PRN ×2 (07:15→14:22)
[2018-04-24] MEDS ORDERED: LACTOBACILLUS ACIDOPHILUS 100 CAP BTL PO SCH (09:00)
[2018-04-24] MEDS ORDERED: OMEGA-3 FATTY ACIDS 1 CAP CAPSULE PO SCH (09:00)
[2018-04-24] MEDS: MORPHINE SULFATE 15 MG TABLET.SA PO SCH (09:00)
[2018-04-24] MEDS ORDERED: METOPROLOL SUCCINATE 50 MG TABLET.SA PO SCH (09:00)
[2018-04-24] MEDS ORDERED: MULTIVITAMINS 1 CAP CAPSULE PO SCH (09:00)
[2018-04-24] MEDS: POLYETHYLENE GLYCOL 3350 119 GM BTL PO SCH (09:02)
[2018-04-24] MEDS: PSYLLIUM SEED 1 PACKET PACKET PO SCH (09:06)
--- NOTE | 2018-04-24 12:29 | DS ---
(1) Status post total right knee replacement Problem: Acute (2) Benign essential hypertension Problem: Chronic (3) Diverticulosis Problem: Chronic Qualifiers: (4) Hyperlipidemia Problem: Chronic Qualifiers: (5) Hypothyroidism Problem: Chronic Qualifiers: (6) Acute blood loss anemia Problem: Acute Description of Stay: Mr. Garcia was admitted to the floor after undergoing right total knee arthroplasty. Tolerated this well. Was admitted to the floor postoperatively for 24 hours of IV antibiotics, pain control, medical comanagement, and occupational and physical therapy. OT and PT were consulted to assist with activities of daily living and ambulation. Was made weightbearing as tolerated with range of motion as tolerated. Pain was initially controlled with IV regimen. This was transitioned to oral once tolerating a by mouth intake. Was resumed on home diet and medications. Had a Castillo catheter inserted and the operating room which was discontinued on postoperative day 1. A drain was placed intraoperatively into the knee which was discontinued on postoperative day 1. Lovenox SCD and DRAKE hose were utilized for DVT prophylaxis. Vital signs remained stable to the hospital course. Serial labs were obtained which showed a final hemoglobin of 12.5 grams. BMP was reviewed and was stable. Physical examination throughout the hospital course showed an extremity that had sensation that was intact to light touch, palpable pulses, a benign wound, motor intact to the toes, ankle, and knee. Knee range of motion was approximately 10 degrees to 60 degrees. Once an oral pain regimen was tolerated and physical therapy goals were met, it was felt that they were stable for discharge to home. He is confined to the home due to limited mobility secondary to his knee replacement, a lack of transportation to assist with transport to outpatient therapy, and inability to drive secondary to his surgery, and significant taxing on him to utilize the limited available public transportation. The need for physical therapy is to assist with mobility, strengthening, range of motion, wound monitoring, and recovery after total knee arthroplasty. Need for occupational therapy is to assist with activities of daily living and progression back to preoperative level of care. The need for home health care skilled services is directly related to the time spent [id number] with the patient. Instructions: Continue with weightbearing as tolerated and range of motion as tolerated. It is okay to shower and get the wound wet as long as there is no drainage from the wound. Do not bathe or soak the wound. If there is any drainage from the wound keep the wound clean and dry and cover with dry gauze and tape. Change every 2- 3 days as needed if there is any drainage. Cover wound while showering if there is any drainage. Continue with physical therapy. Resume home diet. Report any fever over 101.5 Fahrenheit, uncontrolled pain, increased drainage, foul odor of drainage, new or increased calf pain or shortness of breath, or any other si gnificant complaints. A 325mg dialy aspirin will be started after finishing anticoagulation if not allergic. Continue with DRAKE hose on the operative extremity until instructed otherwise. No driving until instructed otherwise. Follow up in approximately 10-14 days. Procedures Performed: see notes below List Procedures: Right total knee arthroplasty Results and Findings: Lab Pending Results 04/24/18 05:24: WBC 9.0, RBC 3.84 L, Hgb 12.5 L, Hct 36.2 L, MCV 94.3, MCH 32.6 H, MCHC 34.5, RDW 13.5, Plt Count 113 L, MPV 10.2 04/24/18 05:24: Sodium 134, Plasma Sodium 134, Potassium 4.6, Chloride 102, Carbon Dioxide 29.9, Anion Gap 6.7 L, BUN 8, Creatinine 0.74, Est GFR (Non-Af Amer) 111, BUN/Creatinine Ratio 10.8, Random Glucose 110, Calcium 8.1 Disposition: Home self-care Condition: Good Discharge Activity: Activity as tolerated, Weight bearing Discharge Diet: General/regular food Referrals: Hever Galeana MD [Primary Care Provider] - Additional Patient Instructions (free text): Follow up Orthopedic appt. on MondayMay 15 at 1:15pm. Ice machine as tolerated when sedentary, at least 4 hours a day, no maximum time. CPM 0-70 degrees flexion, progress as tolerated up to 110 increasing 10 degrees daily as tolerated, use 3 times a day for 1-2 hours at a time, may use longer periods or more often pending patients comfort. Prescriptions (Any new or edited meds): Enoxaparin Sodium [Lovenox] 40 mg SC Q24H #7 disp.syrin Morphine Sulfate [Ms Contin] 15 mg PO Q12H #10 tablet.sa oxyCODONE HCL/ACETAMINOPHEN [Percocet 5 MG/325 MG] 2 tab PO Q4H PRN #60 tablet PRN Reason: Moderate Pain (Pain Scale 4-6) Sennosides/Docusate Sodium [Senokot-S] 2 tab PO HS #60 tablet Complete Home Medications List: Complete Home Medication List: Aspirin [Aspirin Enteric Coated] 81 mg PO DAILY 03/14/16 Atorvastatin Calcium 40 mg PO DAILY 03/14/16 Multivitamins [Multivitamin Richy] 1 cap PO DAILY 11/16/16 [place]-3 Fatty Acids/Fish Oil [Fish Oil 1,000 mg Capsule] 1 ea PO DAILY 11/16/16 levothyroxine 25 mcg tablet 25 mcg PO DAILY #30 tab 12/05/17 metoprolol succinate ER 50 mg tablet,extended release 24 hr 50 mg PO DAILY #30 tab 12/05/17 bifidobacterium bifidum and longum 460 mg (9-1 billion cell) capsule 1 cap PO DAILY cap 01/18/18 methylcellulose (laxative) 500 mg tablet 500 mg PO BID tab 04/13/18 polyethylene glycol 3350 17 gram/dose oral powder 17 g PO DAILY g 04/13/18 Enoxaparin Sodium [Lovenox] 40 mg SC Q24H #7 disp.syrin 04/24/18 Morphine Sulfate [Ms Contin] 15 mg PO Q12H #10 tablet.sa 04/24/18 Sennosides/Docusate Sodium [Senokot-S] 2 tab PO HS #60 tablet 04/24/18 oxyCODONE HCL/ACETAMINOPHEN [Percocet 5 MG/325 MG] 2 tab PO Q4H PRN #60 tablet 04/24/18 Amb Orders for Discharge: PT Evaluation and Treatment* Facility: [facility], Location: Rehabilitation Services PT Evaluation and Treatment* Facility: [facility], Location: Rehabilitation Services
[2018-04-24] MEDS ORDERED: ENOXAPARIN SODIUM 40 MG/0.4 ML SYRG SC SCH (14:05)
[2018-04-24 15:02] VITALS: BP 139/71
== END 2018-04-24 16:01 | disposition home or self-care (01) | DRG 470 ==
LOC: MS 11:01 → EDSTATUS 12:40
PROVIDERS: ADMIT Orthopaedic Surgery; ATTEND Orthopaedic Surgery
CPT/HCPCS: 36415; 73560; 80048; 85027; 97110; 97116; 97161; 97166; J2405